=== PATIENT | male | born 1940 ===

== ENCOUNTER 2024-07-11 18:43 | Emergency (ER) | payer MEDICARE ==
[2024-07-11 21:16] LABS: INR-International Normal Ratio 2.5; PTT 40.5 sec (22.0-33.0); Prothrombin Time 25.5 sec (9.5-12.1)
[2024-07-11] MEDS ORDERED: Vancomycin 1 GM VIAL ONE (21:18)
[2024-07-11] MEDS ORDERED: Piperacillin/Tazobactam 3.375 GM VIAL ONE (21:18)
[2024-07-11 21:20] LABS: #Basophils 0.01 10x3/uL (0.0-0.2); #Eosinophils 0.12 10x3/uL (0.0-0.5); #Monocytes 0.96 10x3/uL (0.0-1.1); %Basophils 0.1 % (0.0-2.0); %Eosinophils 1.1 % (0.0-6.0); %Lymphocytes 18.8 % (18.0-47.0); %Monocytes 9.2 % (0.0-10.0); %Neutrophils 70.5 % (40.0-75.0); ALT (SGPT) 12 U/L (8-55); AST (SGOT) 21 U/L (5-34); Albumin 3.6 g/dL (3.4-4.8); Alkaline Phosphatase 64 U/L (40-110); Anion Gap 11 mmol/L (10-20); BUN (Urea Nitrogen) 15 mg/dL (8.4-25.7); Bilirubin, Total 0.6 mg/dL (0.2-1.2); Calc. Creatinine Clearance 0 mL/min (70-130); Calcium 9.8 mg/dL (7.8-10.44); Carbon Dioxide 30 mmol/L (23-31); Chloride 103 mmol/L (98-107); Estimated GFR 56; Globulin 3.3 g/dL (2.4-3.5); Glucose 94 mg/dL (83-110); Hematocrit 42.6 % (38.8-50.0); Hemoglobin 14.5 g/dL (13.5-17.5); Platelet Count 158 10x3/uL (150-450); Potassium 4.4 mmol/L (3.5-5.1); Protein, Total 6.9 g/dL (5.8-8.1); RBC Distribution Width 12.5 % (11.5-14.5); Red Blood Cell (RBC) Count 4.53 10x6/uL (4.32-5.72); Sodium 140 mmol/L (136-145); White Blood Cell (WBC) Count 10.5 10x3/uL (3.5-10.5)
[2024-07-11 21:24] LABS: Troponin I 0.018 ng/mL (< 0.028)
== END 2024-07-11 23:33 | disposition home or self-care (01) ==
LOC: CSHERS 18:43
DX: L03.116 Cellulitis of left lower limb (principal); I48.91 Unspecified atrial fibrillation; Z55.0 Illiteracy and low-level literacy; Z79.899 Other long term (current) drug therapy; M79.89 Other specified soft tissue disorders; M79.662 Pain in left lower leg
CPT/HCPCS: 73630; 83605; 83735; 83880; 84145; 84484; 85610; 85730; 87040; 87149 ×2; 93971; 96365; 96367; 99284; J2543; J3370; 36415; 80053; 84443; 85025